=== PATIENT | female | born 1945 | race Caucasian/White ===

== ENCOUNTER 2023-02-05 01:46 | Inpatient (IN) | payer MEDICARE, MEDICAID ==
[2023-02-05 03:16] LABS: #Basophils 0.1 10x3/uL (0.0-0.2); #Eosinphils 0.1 10x3/uL (0.0-0.5); #Monocytes 1.1 10x3/uL (0.0-1.1); #Neutrophils 8.8 10x3/uL (1.5-8.4); %Basophils 0.9 % (0.0-2.0); %Eosinophils 0.8 % (0.0-6.0); %Lymphocytes 14.4 % (18.0-47.0); %Monocytes 9.5 % (0.0-10.0); %Neutrophils 74.1 % (40.0-75.0); Hemoglobin 12.7 g/dL (12.0-15.5); Mean Corpuscular Hemoglobin 26.5 pg (27.0-33.0); Mean Corpuscular Volume 80.4 fl (81.6-98.3); Mean Platelet Volume 9.6 fl (7.4-10.4); Platelet Count 462 10x3/uL (150-450); RBC Distribution Width 13.7 % (11.5-14.5); Red Blood Cell (RBC) Count 4.79 10x6/uL (3.90-5.03); White Blood Cell (WBC) Count 11.9 10x3/uL (3.5-10.5)
[2023-02-05 03:20] LABS: ALT (SGPT) 9 U/L (8-55); AST (SGOT) 21 U/L (5-34); Albumin 3.5 g/dL (3.4-4.8); Alkaline Phosphatase 59 U/L (40-110); BUN (Urea Nitrogen) 6 mg/dL (9.8-20.1); Bilirubin, Total 0.6 mg/dL (0.2-1.2); Calc. Creatinine Clearance 0 mL/min (70-130); Calcium 8.4 mg/dL (7.8-10.44); Estimated GFR 73; Globulin 2.5 g/dL (2.4-3.5); Glucose 264 mg/dL (83-110); Magnesium 2.2 mg/dL (1.6-2.6)
[2023-02-05 03:27] LABS: Anion Gap 17 mmol/L (10-20); Carbon Dioxide 35 mmol/L (23-31); Chloride 88 mmol/L (98-107); Sodium 138 mmol/L (136-145)
[2023-02-05 03:40] LABS: Potassium 1.6 mmol/L (3.5-5.1)
[2023-02-05] MEDS ORDERED: Potassium Chloride 20 MEQ TAB ONE (03:41)
[2023-02-05 03:43] LABS: CKMB 0.7 ng/mL (0-6.6)
[2023-02-05] MEDS ORDERED: Potassium Chloride 20 MEQ/100 ML PREMIX BAG ONE ×2 (03:49→05:58)
[2023-02-05] MEDS ORDERED: Dextrose 50% Abboject 50 ML SYRINGE SLOW IVP PRN (04:43)
[2023-02-05] MEDS ORDERED: Ondansetron PF 4 MG/2 ML Vial IVP PRN (04:43)
[2023-02-05] MEDS ORDERED: Dextrose 5% in Water 1,000 ML IV PRN (04:43)
[2023-02-05] MEDS ORDERED: Calcium Carbonate 500 MG ChewTAB PO PRN (04:43)
[2023-02-05] MEDS ORDERED: Acetaminophen 325 MG TAB PO PRN (04:43)
[2023-02-05] MEDS ORDERED: Ventolin HFA Inhaler 60 PUFF INHALER INH PRN (04:55)
[2023-02-05 05:00] LABS: Anion Gap 12 mmol/L (10-20); BUN (Urea Nitrogen) 6 mg/dL (9.8-20.1); CK (CPK) 44 U/L (29-168); Calc. Creatinine Clearance 0 mL/min (70-130); Calcium 8.7 mg/dL (7.8-10.44); Carbon Dioxide 37 mmol/L (23-31); Chloride 90 mmol/L (98-107); Estimated GFR 75; Glucose 268 mg/dL (83-110); Magnesium 2.3 mg/dL (1.6-2.6); Phosphorus 2.3 mg/dL (2.3-4.7); Sodium 137 mmol/L (136-145)
[2023-02-05] MEDS ORDERED: Magnesium 2 GM/50 ML(in water) 2 GM in Premix Bag 1 BAG IVPB SCH (05:00)
[2023-02-05] MEDS ORDERED: Lactated Ringer's 500 ML IV SCH (05:00)
[2023-02-05] MEDS ORDERED: Amlodipine 5 MG TAB PO SCH (05:00)
[2023-02-05] MEDS ORDERED: Lorazepam 2 MG/ML VIAL SLOW IVP PRN (05:04)
[2023-02-05 05:08] LABS: Potassium 1.9 mmol/L (3.5-5.1)
[2023-02-05] MEDS ORDERED: Potassium Chloride 20 MEQ TAB PO SCH ×2 (06:00→14:15)
[2023-02-05] MEDS ORDERED: Magnesium 2 GM/50 ML BAG (IN WATER) ONE (07:32)
[2023-02-05] MEDS: Potassium Chloride 20 MEQ in Premix Bag 1 BAG IVPB SCH ×5 (07:39→16:03)
[2023-02-05 08:50] LABS: Bilirubin Neg (Negative); Blood, Urine 10 (Negative); Clarity Slightly Cloudy (Clear); Glucose, Urine (Dipstick) Normal (Negative); Ketone, Urine Negative (Negative); Leukocyte 500 (Negative); Nitrite Positive (Negative); Protein, Urine (Dipstick) 30 mg/dl (Neg-Trace); Urobilinogen Normal mg/dL (Less than 2)
[2023-02-05 09:01] LABS: Bacteria/HPF 3+ HPF (None Seen); RBC/HPF 0-3 HPF (0-3); Squamous Epithelial None Seen HPF (0-3); WBC/HPF 21-50 HPF (0-3)
[2023-02-05] MEDS: Lisinopril 10 MG TAB PO SCH (09:41)
[2023-02-05] MEDS: Lantus 1000 UNITS/10 ML VIAL SC SCH (09:43)
[2023-02-05] MEDS: Amlodipine 5 MG TAB PO SCH (09:43)
[2023-02-05] MEDS: HumaLOG 300 UNITS/3 ML VIAL SC PRN (09:44)
[2023-02-05 12:34] LABS: Anion Gap 11 mmol/L (10-20); BUN (Urea Nitrogen) 5 mg/dL (9.8-20.1); Calc. Creatinine Clearance 54 mL/min (70-130); Calcium 8.5 mg/dL (7.8-10.44); Carbon Dioxide 36 mmol/L (23-31); Chloride 95 mmol/L (98-107); Estimated GFR 80; Glucose 202 mg/dL (83-110); Potassium 2.8 mmol/L (3.5-5.1); Sodium 139 mmol/L (136-145)
[2023-02-05 12:57] LABS: CKMB 0.9 ng/mL (0-6.6)
[2023-02-05 14:35] VITALS: BMI 20.4
[2023-02-05 16:31] LABS: Hemoglobin A1c 7.2 % (4.0-6.0)
[2023-02-05 16:31] LABS: BUN (Urea Nitrogen) 5 mg/dL (9.8-20.1); Calc. Creatinine Clearance 54 mL/min (70-130); Calcium 8.5 mg/dL (7.8-10.44); Estimated GFR 81; Glucose 168 mg/dL (83-110)
[2023-02-05 16:38] LABS: Anion Gap 16 mmol/L (10-20); Carbon Dioxide 34 mmol/L (23-31); Chloride 94 mmol/L (98-107); Potassium 3.2 mmol/L (3.5-5.1); Sodium 141 mmol/L (136-145)
[2023-02-05 16:55] LABS: CKMB 1.1 ng/mL (0-6.6)
[2023-02-05 22:17] LABS: Anion Gap 12 mmol/L (10-20); BUN (Urea Nitrogen) 5 mg/dL (9.8-20.1); Calc. Creatinine Clearance 48 mL/min (70-130); Calcium 8.2 mg/dL (7.8-10.44); Carbon Dioxide 33 mmol/L (23-31); Chloride 97 mmol/L (98-107); Estimated GFR 71; Glucose 273 mg/dL (83-110); Potassium 3.1 mmol/L (3.5-5.1); Sodium 139 mmol/L (136-145)
[2023-02-06 02:53] LABS: Anion Gap 14 mmol/L (10-20); BUN (Urea Nitrogen) 6 mg/dL (9.8-20.1); Calc. Creatinine Clearance 50 mL/min (70-130); Calcium 8.1 mg/dL (7.8-10.44); Carbon Dioxide 30 mmol/L (23-31); Chloride 98 mmol/L (98-107); Estimated GFR 73; Glucose 248 mg/dL (83-110); Potassium 2.9 mmol/L (3.5-5.1); Sodium 139 mmol/L (136-145)
[2023-02-06] MEDS: HumaLOG 300 UNITS/3 ML VIAL SC PRN ×2 (03:00→11:37)
[2023-02-06 03:10] LABS: #Basophils 0.1 10x3/uL (0.0-0.2); #Eosinphils 0.2 10x3/uL (0.0-0.5); #Monocytes 1.2 10x3/uL (0.0-1.1); #Neutrophils 4.9 10x3/uL (1.5-8.4); %Eosinophils 1.8 % (0.0-6.0); %Lymphocytes 36.5 % (18.0-47.0); %Monocytes 11.5 % (0.0-10.0); %Neutrophils 48.9 % (40.0-75.0); Hemoglobin 10.8 g/dL (12.0-15.5); Mean Corpuscular Hemoglobin 26.2 pg (27.0-33.0); Mean Corpuscular Volume 84.3 fl (81.6-98.3); Mean Platelet Volume 9.7 fl (7.4-10.4); Platelet Count 430 10x3/uL (150-450); RBC Distribution Width 14.4 % (11.5-14.5); Red Blood Cell (RBC) Count 4.13 10x6/uL (3.90-5.03); White Blood Cell (WBC) Count 10.1 10x3/uL (3.5-10.5)
[2023-02-06] MEDS ORDERED: Potassium Chloride 20 MEQ TAB PO SCH ×2 (05:45→08:00)
[2023-02-06] MEDS: Amlodipine 5 MG TAB PO SCH (08:11)
[2023-02-06] MEDS: Lisinopril 10 MG TAB PO SCH (08:11)
[2023-02-06] MEDS: Lantus 1000 UNITS/10 ML VIAL SC SCH (08:14)
[2023-02-07 09:38] LABS: Anion Gap 12 mmol/L (10-20); BUN (Urea Nitrogen) 6 mg/dL (9.8-20.1); Calc. Creatinine Clearance 56 mL/min (70-130); Calcium 8.3 mg/dL (7.8-10.44); Carbon Dioxide 36 mmol/L (23-31); Chloride 97 mmol/L (98-107); Estimated GFR 84; Glucose 162 mg/dL (83-110); Potassium 3.1 mmol/L (3.5-5.1); Sodium 142 mmol/L (136-145)
[2023-02-07] MEDS: Amlodipine 5 MG TAB PO SCH (09:49)
[2023-02-07] MEDS: Lisinopril 10 MG TAB PO SCH (09:49)
[2023-02-07] MEDS: Lantus 1000 UNITS/10 ML VIAL SC SCH (09:49)
[2023-02-07] MEDS: HumaLOG 300 UNITS/3 ML VIAL SC PRN ×2 (13:05→21:18)
[2023-02-07] MEDS ORDERED: Potassium Chloride 20 MEQ TAB PO SCH (20:00)
[2023-02-07] MEDS ORDERED: Potassium Chloride 10 MEQ in Premix Bag 1 BAG IVPB SCH (20:00)
[2023-02-08] MEDS ORDERED: Iopamidol 370 76% 100 ML VIAL ONE (09:22)
[2023-02-08] MEDS: Lisinopril 10 MG TAB PO SCH (10:29)
[2023-02-08] MEDS: Amlodipine 5 MG TAB PO SCH (10:29)
[2023-02-08] MEDS: Lantus 1000 UNITS/10 ML VIAL SC SCH (10:30)
[2023-02-08] MEDS: HumaLOG 300 UNITS/3 ML VIAL SC PRN (11:44)
[2023-02-09] MEDS: HumaLOG 300 UNITS/3 ML VIAL SC PRN ×3 (00:58→18:39)
[2023-02-09 04:38] LABS: #Basophils 0.1 10x3/uL (0.0-0.2); #Eosinphils 0.2 10x3/uL (0.0-0.5); #Monocytes 1.4 10x3/uL (0.0-1.1); #Neutrophils 5.3 10x3/uL (1.5-8.4); %Eosinophils 2.1 % (0.0-6.0); %Lymphocytes 33.7 % (18.0-47.0); %Monocytes 13.5 % (0.0-10.0); %Neutrophils 49.3 % (40.0-75.0); ALT (SGPT) 7 U/L (8-55); AST (SGOT) 12 U/L (5-34); Albumin 3.1 g/dL (3.4-4.8); Alkaline Phosphatase 55 U/L (40-110); Anion Gap 11 mmol/L (10-20); BUN (Urea Nitrogen) 9 mg/dL (9.8-20.1); Bilirubin, Total 0.5 mg/dL (0.2-1.2); Calc. Creatinine Clearance 51 mL/min (70-130); Calcium 8.4 mg/dL (7.8-10.44); Carbon Dioxide 33 mmol/L (23-31); Chloride 97 mmol/L (98-107); Estimated GFR 75; Globulin 2.2 g/dL (2.4-3.5); Glucose 123 mg/dL (83-110); Mean Corpuscular HGB CONC 32.2 g/dL (32.0-36.0); Mean Corpuscular Hemoglobin 26.4 pg (27.0-33.0); Mean Corpuscular Volume 82.2 fl (81.6-98.3); Platelet Count 398 10x3/uL (150-450); Potassium 2.7 mmol/L (3.5-5.1); Protein, Total 5.3 g/dL (5.8-8.1); RBC Distribution Width 14.4 % (11.5-14.5); Red Blood Cell (RBC) Count 4.16 10x6/uL (3.90-5.03); Sodium 138 mmol/L (136-145); White Blood Cell (WBC) Count 10.7 10x3/uL (3.5-10.5)
[2023-02-09] MEDS: Lisinopril 10 MG TAB PO SCH (08:41)
[2023-02-09] MEDS: Potassium Chloride 20 MEQ TAB PO SCH ×2 (08:41→12:47)
[2023-02-09] MEDS: Amlodipine 5 MG TAB PO SCH (08:42)
[2023-02-09] MEDS: Lantus 1000 UNITS/10 ML VIAL SC SCH (08:42)
[2023-02-09] MEDS ORDERED: Aspirin 81 mg Enteric Coated Tablet PO SCH (17:00)
[2023-02-09] MEDS ORDERED: metFORMIN 500 MG TAB PO SCH (17:30)
[2023-02-09] MEDS: Atorvastatin Calcium 40 MG TAB PO SCH (20:53)
[2023-02-10] MEDS: HumaLOG 300 UNITS/3 ML VIAL SC PRN ×2 (00:49→13:13)
[2023-02-10 05:59] LABS: Anion Gap 15 mmol/L (10-20); BUN (Urea Nitrogen) 8 mg/dL (9.8-20.1); Calc. Creatinine Clearance 55 mL/min (70-130); Calcium 8.7 mg/dL (7.8-10.44); Carbon Dioxide 29 mmol/L (23-31); Cardiac Risk 3.3 (Less than 4.5); Chloride 99 mmol/L (98-107); Cholesterol 190 mg/dl (< 200 Desired); Estimated GFR 83; Glucose 132 mg/dL (83-110); HDL Cholesterol 57 mg/dL (>60 Neg Risk); LDL Cholesterol, Calculated 114 mg/dL; Magnesium 1.9 mg/dL (1.6-2.6); Sodium 140 mmol/L (136-145); Triglycerides 95 mg/dL (Less than 150)
[2023-02-10] MEDS ORDERED: metFORMIN 500 MG TAB PO SCH (08:00)
[2023-02-10] MEDS ORDERED: Spironolactone 25 MG TAB PO SCH (08:00)
[2023-02-10] MEDS: Lisinopril 10 MG TAB PO SCH (08:59)
[2023-02-10] MEDS: Lantus 1000 UNITS/10 ML VIAL SC SCH (09:00)
[2023-02-10] MEDS ORDERED: Potassium Chloride 20 MEQ TAB PO SCH (09:00)
[2023-02-10] MEDS ORDERED: Aspirin 81 mg Enteric Coated Tablet PO SCH (09:00)
[2023-02-10 12:35] VITALS: BP 116/56; TEMP 97.8
== END 2023-02-10 14:30 | disposition home or self-care (01) | DRG 641 ==
LOC: CSHERS 01:46 → CSHICU 06:37 → CSHTELE 02-06 17:17
PROVIDERS: ADMIT Student in an Organized Health Care Education/Training Program; ATTEND Family Medicine
PROC: 4A10X4Z Monitoring of Central Nervous Electrical Activity, External Approach (ICD-10-PCS; principal; 2023-02-08)
DX: E87.6 Hypokalemia (principal); I50.30 Unspecified diastolic (congestive) heart failure; R56.9 Unspecified convulsions; E11.9 Type 2 diabetes mellitus without complications; E78.5 Hyperlipidemia, unspecified; F32.A Depression, unspecified; I65.01 Occlusion and stenosis of right vertebral artery; I65.22 Occlusion and stenosis of left carotid artery; I11.0 Hypertensive heart disease with heart failure; R77.8 Other specified abnormalities of plasma proteins; Z79.4 Long term (current) use of insulin; Z79.51 Long term (current) use of inhaled steroids; Z79.899 Other long term (current) drug therapy; Z98.890 Other specified postprocedural states; Z90.49 Acquired absence of other specified parts of digestive tract; Z98.51 Tubal ligation status
CPT/HCPCS: 36415; 36416; 70450; 70498; 70551; 80048; 80053; 80061; 81001; 82550; 82553; 83036; 83735; 84100; 84443; 84484; 85025; 93005; 93010; 93306; 93880; 94760; 94762; 95816; 95819; 95957; 96365; 96366; J1650; J1815; J3475; J3480; J7120; Q9967